=== PATIENT | female | born 1965 | race African-American/Black ===

== ENCOUNTER 2017-10-27 03:22 | Observation (INO) ==
[2017-10-27] MEDS ORDERED: METOPROLOL TARTRATE 25 MG TABLET PO STA (03:42)
[2017-10-27] MEDS ORDERED: ALUM/MAG/SIMETH/LIDO VISC 1:1 30 ML BOTTLE PO STA (03:42)
[2017-10-27] MEDS ORDERED: ASPIRIN 325 MG TABLET PO STA (03:42)
[2017-10-27] MEDS ORDERED: NITROGLYCERIN 2% OINT 1 INCH/GM PACK TOP STA (03:42)
[2017-10-27] MEDS ORDERED: ONDANSETRON 4 MG/2 ML VIAL IV STA (03:42)
[2017-10-27] MEDS ORDERED: MORPHINE 4 MG/1 ML VIAL IV STA (03:42)
[2017-10-27 04:22] LABS: Basophils % 0.5 % (0.0-0.8); Eosinophils # 0.2 10*3/uL (0.0-0.87); Eosinophils % 3.6 % (0.00-10.9); Hematocrit 36.2 VOL% (35.7-47.0); Hemoglobin 11.5 GM/DL (12.0-16.0); Immature Granulocytes % 0.4 %; Immature Granulocytes Absolute 0.02 #; Lymphocytes # 1.8 10*3/uL (1.4-4.0); Lymphocytes % 31.7 % (21.3-54.2); Mean Corpuscular HGB Conc 31.8 GM/DL (32-36); Mean Corpuscular Hemoglobin 26 PG (27-34); Mean Corpuscular Volume 82.8 FL (87-102); Mean Platelet Volume 8.6 FL (9.6-12.0); Monocytes # 0.8 10*3/uL (0.11-0.8); Monocytes % 14.6 % (1.7-12.7); Neutrophils # 2.8 10*3/uL (1.4-7.4); Neutrophils % 49.2 % (38.7-73.9); Platelet Count 274 T/CUMM (130-400); Red Blood Count 4.37 MC/CUMM (3.8-5.5); Red Cell Distribution Width 14.1 % (9.3-17.3); White Blood Count 5.6 T/CUMM (4-12)
[2017-10-27 04:32] LABS: PT Patient Result 10.5 SECS
[2017-10-27 04:48] LABS: Alanine Aminotransferase 20 U/L (13-56); Albumin 3.3 G/DL (3.4-5.0); Alkaline Phosphatase 82 U/L (45-117); Aspartate Amino Transferase 12 U/L (0-37); Bilirubin,Total < 0.39 MG/DL (0.2-1.0); Blood Urea Nitrogen 10 MG/DL (7-18); Calcium 9.3 MG/DL (8.5-10.1); Glucose 107 MG/DL (74-106); Osmolality,Calculated 279.3 MOS/KG (273-304); Potassium 3.4 MMOL/L (3.5-5.1); Sodium 141 MMOL/L (136-145); Total Protein 7.6 G/DL (6.4-8.3)
[2017-10-27] MEDS ORDERED: ENOXAPARIN 100 MG/ML SYRINGE SUBCUT STA (05:22)
[2017-10-27] MEDS ORDERED: ACETAMINOPHEN 325 MG TABLET PO PRN (07:25)
[2017-10-27] MEDS ORDERED: ONDANSETRON 4 MG/2 ML VIAL IV PRN (07:25)
[2017-10-27] MEDS ORDERED: MORPHINE 4 MG/1 ML VIAL IV PRN (07:25)
[2017-10-27] MEDS: NITROGLYCERIN 2% OINT 1 INCH/GM PACK TOP SCH ×2 (07:37→12:03)
[2017-10-27] MEDS: SODIUM CHLORIDE 0.9% 1,000 ML IV SCH (07:41)
[2017-10-27] MEDS: DOCUSATE SODIUM 100 MG CAPSULE PO SCH ×2 (08:49→20:55)
[2017-10-27] MEDS: PANTOPRAZOLE 40 MG VIAL IV SCH (08:50)
[2017-10-27] MEDS: ASPIRIN EC 325 MG TABLET PO SCH (08:53)
[2017-10-27] MEDS ORDERED: ENOXAPARIN 80 MG/0.8 ML SYRINGE SUBCUT SCH (09:00)
[2017-10-27] MEDS ORDERED: POTASSIUM CHLORIDE 20 MEQ TABLET PO SCH (09:00)
[2017-10-27] MEDS ORDERED: METOPROLOL TARTRATE 25 MG TABLET PO SCH (09:00)
[2017-10-27] MEDS: POTASSIUM CHLORIDE 20 MEQ TABLET PO SCH (13:37)
[2017-10-27] MEDS ORDERED: KETOROLAC 15 MG/1 ML VIAL IV ONE (16:25)
[2017-10-28 03:32] LABS: Basophils % 0.6 % (0.0-0.8); Eosinophils # 0.2 10*3/uL (0.0-0.87); Eosinophils % 3.4 % (0.00-10.9); Hematocrit 33.3 VOL% (35.7-47.0); Hemoglobin 10.7 GM/DL (12.0-16.0); Immature Granulocytes % 0.2 %; Immature Granulocytes Absolute 0.01 #; Lymphocytes # 1.8 10*3/uL (1.4-4.0); Lymphocytes % 35.5 % (21.3-54.2); Mean Corpuscular HGB Conc 32.1 GM/DL (32-36); Mean Corpuscular Hemoglobin 27 PG (27-34); Mean Corpuscular Volume 83.3 FL (87-102); Mean Platelet Volume 8.9 FL (9.6-12.0); Monocytes # 0.7 10*3/uL (0.11-0.8); Monocytes % 14.3 % (1.7-12.7); Neutrophils # 2.3 10*3/uL (1.4-7.4); Platelet Count 256 T/CUMM (130-400); Red Cell Distribution Width 14.1 % (9.3-17.3)
[2017-10-28 03:58] LABS: Alanine Aminotransferase 33 U/L (13-56); Albumin 2.9 G/DL (3.4-5.0); Alkaline Phosphatase 69 U/L (45-117); Aspartate Amino Transferase 30 U/L (0-37); Bilirubin,Total < 0.39 MG/DL (0.2-1.0); Calcium 8.5 MG/DL (8.5-10.1); Total Protein 6.7 G/DL (6.4-8.3)
[2017-10-28 03:59] LABS: Blood Urea Nitrogen 14 MG/DL (7-18); Cholesterol 108 MG/DL (50-200); Glucose 90 MG/DL (74-106); HDL Cholesterol 41 MG/DL (40-60); Potassium 4.1 MMOL/L (3.5-5.1); Risk Ratio 2.63; Sodium 143 MMOL/L (136-145); Triglycerides 76 MG/DL (2-150); VLDL CHOLESTEROL 15.2 MG/DL
[2017-10-28 04:42] LABS: Band Neutrophils 2 % (0-10); Lymphocytes 39 % (20-55); Platelet Estimate Normal; Segmented Neutrophils 52 % (50-85); Total Cells Counted 100
[2017-10-28] MEDS: SODIUM CHLORIDE 0.9% 1,000 ML IV SCH (04:51)
[2017-10-28] MEDS: ASPIRIN EC 325 MG TABLET PO SCH (08:27)
[2017-10-28] MEDS: POTASSIUM CHLORIDE 20 MEQ TABLET PO SCH (08:27)
[2017-10-28] MEDS: DOCUSATE SODIUM 100 MG CAPSULE PO SCH (08:28)
[2017-10-28] MEDS: PANTOPRAZOLE 40 MG VIAL IV SCH (08:28)
[2017-10-28] MEDS ORDERED: POTASSIUM CHLORIDE 10 MEQ TABLET PO SCH (09:00)
[2017-10-28] MEDS ORDERED: POTASSIUM CHLORIDE 20 MEQ TABLET PO SCH (09:00)
[2017-10-28] MEDS ORDERED: LOSARTAN 50 MG TABLET PO SCH (09:00)
[2017-10-28] MEDS ORDERED: TRIAMTERENE/HCTZ 37.5-25 MG TABLET PO SCH (09:30)
[2017-10-28 12:05] VITALS: BP 140/89
== END 2017-10-28 14:15 | disposition home or self-care (01) ==
LOC: N.ED 03:22 → N.EDINP 05:25 → INTOOBSV 05:25 → N.2W 09:27 → N.TELEN 12:31
PROVIDERS: ADMIT Family Medicine; ATTEND Family Medicine